=== PATIENT | female | born 1995 | race Caucasian/White ===

== ENCOUNTER 2019-08-14 23:01 | Day surgery (SDC) | payer OTHER ==
[2019-08-14 23:40] VITALS: BMI 25.2
[2019-08-14 23:48] LABS: Amnisure Test No Membranes Rupture (No Rupture)
[2019-08-14 23:49] LABS: Amnisure Internal Control QC ACCEPTABLE (ACCEPTABLE)
[2019-08-15] MEDS ORDERED: hydrALAZINE 20 MG/ML VIAL SLOW IVP PRN (00:20)
--- NOTE | 2019-08-15 07:31 | SS ---
DATE OF ADMISSION: 08/14/2019 DATE OF DISCHARGE: 08/15/2019 TIME OF SERVICE: 0020 REASON FOR CONSULTATION: Possible rupture of membranes at 36 weeks gestation. HISTORY OF PRESENT ILLNESS: Mrs. Toussaint is a 1, para 0, 24 [address] Weiss. Her CATHLEEN is 09/10. She thinks she may be leaking fluid. She reports some contractions too. She reports an active fetus. TRIAL EXAMINER HISTORY: Uncomplicated . Blood type O negative, antibody negative. Pap negative. Rubella immune. VDRL nonreactive. Hepatitis B, GC, chlamydia negative. Group B strep unknown. PAST MEDICAL HISTORY: Denies. PAST SURGICAL HISTORY: Denies. ALLERGIES: DENIES. MEDICATIONS: vitamins. SOCIAL HISTORY: Denies tobacco, alcohol, or IV drug use. FAMILY HISTORY: Reviewed. REVIEW OF SYSTEMS: Noncontributory. PHYSICAL EXAMINATION: GENERAL: White female, no acute distress. VITAL SIGNS: Temperature 98.1, respirations 18, pulse 85, blood pressure 128/82. HEENT: Within normal limits. LUNGS: Clear to auscultation bilaterally. HEART: Regular rhythm. ABDOMEN: Soft and nontender with occasional indentable contractions. Fundal height of 36. FHTs 140s. Vulva without lesions. Vagina without significant discharge. Cervix is 150 and -2 posterior cephalic presentation. EXTREMITIES: No clubbing, cyanosis, or edema. LABORATORY STUDIES: monitoring is carried out for greater than 20 minutes, revealed positive accelerations, no decelerations, category 1 heart rate tracing baseline 140s. Contractions q.5-6 minutes. AmniSure was performed, which was negative for rupture of membranes. IMPRESSION: Prodromal labor at 36 weeks gestation. No evidence of rupture of membranes. PLAN: Discharge home. ER precautions. Keep scheduled followup next Sunday with Dr. Weiss. Job ID: [id number]
[2019-08-15] MEDS ORDERED: FLU VACC QS2019-20(6MOS UP)/PF 60 MCG/0.5 ML SYRINGE IM ONE (09:00)
== END 2019-08-15 00:19 | disposition home or self-care (01) ==
LOC: L&D/OP 23:01
PROVIDERS: ATTEND Obstetrics & Gynecology
DX: O47.03 False labor before 37 completed weeks of gestation, third trimester (principal); O99.89 Other specified diseases and conditions complicating pregnancy, childbirth and the puerperium; N89.8 Other specified noninflammatory disorders of vagina; Z3A.36 36 weeks gestation of pregnancy; Z88.1 Allergy status to other antibiotic agents
CPT/HCPCS: 84112; 99283

== ENCOUNTER 2019-08-27 16:44 | Day surgery (SDC) | payer OTHER ==
[2019-08-27 17:11] VITALS: BP 118/70; TEMP 98.8
[2019-08-27 17:51] VITALS: BMI 28.3
[2019-08-27] MEDS ORDERED: FLU VACC QS2019-20(6MOS UP)/PF 60 MCG/0.5 ML SYRINGE IM ONE (20:00)
== END 2019-08-27 23:37 | disposition home or self-care (01) ==
LOC: L&D/OP 16:44
PROVIDERS: ATTEND Obstetrics & Gynecology
DX: O47.9 False labor, unspecified (principal); Z3A.00 Weeks of gestation of pregnancy not specified; Z88.1 Allergy status to other antibiotic agents
CPT/HCPCS: 99283

== ENCOUNTER 2019-08-30 19:09 | Inpatient (IN) | payer OTHER ==
[~2019-08-30 19:09] MED LIST: Bupivacaine/Epinephrine 0.25% 30 ML VIAL ONE
[2019-08-30] MEDS ORDERED: hydrALAZINE 20 MG/ML VIAL SLOW IVP PRN (19:47)
[2019-08-30 19:49] VITALS: BMI 25.8
--- NOTE | 2019-08-30 19:53 | PDOC.FPROB ---
FMR OB H&P: Medications - Current Home Medications: Medication Instructions Recorded Confirmed Type Pnv No.95/Ferrous Fum/Folic AC 1 tab PO DAILY 08/14/19 08/30/19 History [ [place]] Allergies/Adverse Reactions: Allergies Allergy/AdvReac Type Severity Reaction Status Date / Time azithromycin Allergy Severe Anaphylaxis Verified 08/27/19 17:09 FMR OB H&P: Vital Signs - Maternal Vital signs: Vital Signs - First Documented Temp Pulse Resp BP Pulse Ox 98.4 F 100 16 126/73 98 08/30/19 19:30 08/30/19 19:30 08/30/19 19:30 08/30/19 19:30 08/30/19 19:30 FMR OB H&P: A/P - Problem List (1) Current Visit: Yes Status: Acute Discussion: Date/Time: 08/30/191951 PCP: Isela HPI: This is a at 38.2 wks presenting for SROM. She states this occurred about 630 PM, she was getting out of the bathtub and felt a gush of fluid, she waited 30 minutes and felt another jimenes of fluid and continued to have leakage upon arrival to the ER. She states she is feeling contractions about 5 minutes apart. She affirms movement, denies bleeding. Denies HAYS, visual changes, SOB, or swelling. History: OB hx: G1, uncomplicated PMH: denies significant PMH PSH: neg Meds: PNV All: Azithromycin (anaphylaxis) Soc Hx: denies smoking, alcohol, drugs Fam Hx: denies downs, congenital defects GBS: unknown Blood type: O neg Ab screen: neg HIV: neg RPR: neg Hep B: neg Rubella: immune 1 hr GTT: 123 GC/CT: neg PAP: NILM REVIEW OF SYSTEMS: Gen: no fever, chills, or sweats Neuro: no numbness/tingling, no weakness, denies headache ENT: denies congestion Eyes: no visual changes Resp: denies cough, no production, no SOB, no wheeze Card: denies chest pain, no palpitations GI: denies nausea, vomiting, diarrhea : no dysuria, no hematuria Skin: no rash, no erythema Psych: denies hx anxiety/depression Vitals: T: 98.5 R: 18 BP: 123/84 P:67 at: 98% on RA PHYSICAL EXAMINATION: General: NAD, alert and oriented x3 HEENT: EOMI, normal sclera Neck: Supple. Full ROM. Heart/Cardiovascular System: RRR, Cap refill < 3 seconds, no rub, no murmur Lungs/Respiratory System: clear to auscultation bilaterally. No increased work of breathing. Room air. Abdomen/Gastro-Intestinal System: no abdominal tenderness, normal bowel sounds, Gravid Extremities: Warm extremities. No cyanosis or edema. Neuro: No gross deficits appreciated Psychiatry: Awake, Alert and cooperative with exam Skin: no lesions, no rashes Musculoskeletal: Full ROM A/P: This is a at 38.2 wks presenting for SROM. FHT: 150 baseline, mod variability, no decels, accels present [place]: irregular contractions # - /-1 - GBS neg - Amnisure negative - will start Pitocin augmentation - admitted to Dr. Weiss
[2019-08-30 20:16] LABS: Amnisure Internal Control QC ACCEPTABLE (ACCEPTABLE); Amnisure Test No Membranes Rupture (No Rupture)
[2019-08-30] MEDS ORDERED: Ondansetron PF 4 MG/2 ML Vial IVP PRN (20:37)
[2019-08-30] MEDS ORDERED: Promethazine HCl 25 MG/ML VIAL IM PRN (20:37)
[2019-08-30] MEDS ORDERED: Lidocaine 1% (PF) 30 ML VIAL SC PRN (20:37)
[2019-08-30] MEDS ORDERED: Acetaminophen 500 MG TAB PO PRN (20:37)
[2019-08-30] MEDS ORDERED: NS / Oxytocin 40 units/1000ml 1,000 ML IV PRN (20:37)
[2019-08-30] MEDS ORDERED: NS w/ Oxytocin 10 units 500 ML IV SCH (20:45)
[2019-08-30] MEDS: Lactated Ringer's 1,000 ML IV SCH (21:11)
[2019-08-30 21:55] LABS: Hemoglobin 11.9 g/dL (12.0-16.0); Mean Corpuscular HGB CONC 34.3 g/dL (32.0-36.0); Mean Corpuscular Hemoglobin 31.1 pg (27.0-31.0); Mean Corpuscular Volume 90.8 fL (78.0-98.0); Mean Platelet Volume 9.5 fL (7.4-10.4); Platelet Count 182 thou/uL (130-400); RBC Distribution Width 12.5 % (11.5-14.5); Red Blood Cell (RBC) Count 3.82 mill/uL (4.20-5.40); White Blood Cell (WBC) Count 14.5 thou/uL (4.8-10.8)
[2019-08-30 22:17] LABS: Syphilis Antibody Nonreactive (Nonreactive); Syphilis Antibody Index 0.03 S/CO (<1.00 Non-Reactive)
[2019-08-30 22:44] LABS: HBSAg Index 0.27 S/CO (0-0.99); Hep B Surf Ag Non-Reactive S/CO (NonReactive)
[2019-08-31] MEDS ORDERED: Fentanyl 4 mcg/Bup 0.1% Cadd 100 ML ONE (01:34)
[2019-08-31] MEDS: Lactated Ringer's 1,000 ML IV SCH ×2 (03:34→10:39)
[2019-08-31] MEDS ORDERED: Lidocaine 1% (PF) 30 ML VIAL ONE (06:58)
[2019-08-31] MEDS ORDERED: NS / Oxytocin 40 units/1000ml 1,000 ML ONE (06:58)
[2019-08-31] MEDS: Misoprostol 200 MCG TAB ONE ×2 (07:42→08:06)
[2019-08-31] MEDS ORDERED: HYDROcodone/Acetaminophen 5/325 mg Tablet PO PRN (09:15)
[2019-08-31] MEDS ORDERED: Preparation H Ointment 28 GM TUBE PR PRN (09:15)
[2019-08-31] MEDS ORDERED: Promethazine HCl 25 MG/ML VIAL IM PRN (09:15)
[2019-08-31] MEDS ORDERED: Adacel (T-DAP) 0.5 ML SYRINGE IM ONE (09:15)
[2019-08-31] MEDS ORDERED: Measles/Mumps/Rubella 10 MCG/0.5 ML VIAL SC ONE (09:15)
[2019-08-31] MEDS ORDERED: diphenhydrAMINE 25 MG CAP PO PRN (09:15)
[2019-08-31] MEDS ORDERED: hydrALAZINE 20 MG/ML VIAL SLOW IVP PRN (09:15)
[2019-08-31] MEDS ORDERED: Lanolin Ointment 7 GM TUBE TOP PRN (09:15)
[2019-08-31] MEDS ORDERED: Ondansetron PF 4 MG/2 ML Vial IVP PRN (09:15)
[2019-08-31] MEDS ORDERED: Bisacodyl 10 MG SUPP PR PRN (09:15)
[2019-08-31] MEDS ORDERED: NS / Oxytocin 40 units/1000ml 1,000 ML IV SCH (09:15)
[2019-08-31] MEDS ORDERED: Methylergonovine 0.2 MG/ML VIAL IM PRN (09:15)
[2019-08-31] MEDS ORDERED: Zolpidem Tartrate 5 MG TAB PO PRN (09:15)
[2019-08-31] MEDS ORDERED: Milk Of Magnesia 30 ML UDCUP PO PRN (09:15)
[2019-08-31] MEDS ORDERED: Varicella virus, LIVE 0.5 ML VIAL SC ONE (09:15)
[2019-08-31] MEDS ORDERED: Benzocaine-Menthol 82.5 ML CAN TOP PRN (09:15)
[2019-08-31] MEDS: Ibuprofen 800 MG TAB PO SCH ×2 (09:31→18:14)
[2019-08-31] MEDS: Ferrous Sulfate 325 MG TAB PO SCH (10:36)
[2019-08-31] MEDS: Docusate Calcium (SURFAK) 240 MG CAP PO SCH ×2 (11:12→21:41)
[2019-08-31] MEDS: Prenatal Vitamin 1 TAB PO SCH (11:12)
[2019-08-31] MEDS: HYDROcodone/Acetaminophen 5/325 mg Tablet PO PRN (15:03)
[2019-09-01] MEDS: Ibuprofen 800 MG TAB PO SCH ×3 (02:42→21:28)
[2019-09-01] MEDS ORDERED: Witch Hazel-Glycerin 1 EACH JAR TOP PRN (04:49)
[2019-09-01 05:58] LABS: Hemoglobin 11.1 g/dL (12.0-16.0); Mean Corpuscular HGB CONC 34.3 g/dL (32.0-36.0); Mean Corpuscular Hemoglobin 31.5 pg (27.0-31.0); Mean Corpuscular Volume 91.7 fL (78.0-98.0); Mean Platelet Volume 9.6 fL (7.4-10.4); Platelet Count 168 thou/uL (130-400); RBC Distribution Width 12.6 % (11.5-14.5); Red Blood Cell (RBC) Count 3.53 mill/uL (4.20-5.40); White Blood Cell (WBC) Count 13.3 thou/uL (4.8-10.8)
[2019-09-01] MEDS: Ferrous Sulfate 325 MG TAB PO SCH ×2 (07:43→16:34)
[2019-09-01] MEDS: Docusate Calcium (SURFAK) 240 MG CAP PO SCH ×2 (08:03→21:28)
[2019-09-01] MEDS: Prenatal Vitamin 1 TAB PO SCH (08:03)
[2019-09-01] MEDS: HYDROcodone/Acetaminophen 5/325 mg Tablet PO PRN ×3 (08:09→21:32)
--- NOTE | 2019-09-01 21:20 | PDOC.PP ---
Post Progress Note Post Day #: 1 PO intake tolerated: yes Flatus: yes Ambulation: yes Vital Signs (12 hours) Temp Pulse Resp BP Pulse Ox 09/01/19 20:09 98.6 F 78 12 107/63 98 09/01/19 11:32 99.1 F 65 20 113/67 98 Weight Weight 170 lb - Physical Examination General: NAD Cardiovascular: no m/r/g, RRR Respiratory: clear to auscultation bilaterally, non-labored breathing Abdominal: + bowel sounds, lochia, no distention, appropriately TTP Extremities: negative homans (B) Neurological: no gross focal deficits Psychiatric: A&Ox3, normal affect Result Diagrams: 09/01/19 05:45 Additional Labs: Post Labs Blood Type O NEGATIVE 08/30/19 22:33 Hep Bs Antigen Non-Reactive S/CO (NonReactive) 08/30/19 21:14
--- NOTE | 2019-09-02 00:18 | DN ---
DATE OF PROCEDURE: 08/31/2019 TIME OF SERVICE: 0718 hours [place] Day[employer] Savings Time. PREOPERATIVE DIAGNOSIS: Intrauterine at 38 weeks and 3 days with spontaneous onset of labor. POSTOPERATIVE DIAGNOSIS: Intrauterine at 38 weeks and 3 days with spontaneous onset of labor. PROCEDURES PERFORMED: Spontaneous vaginal delivery over a right periurethral laceration and a first-degree laceration of the perineum. FINDINGS: Viable female , weighing 3359 g or 7 pounds 6 ounces. Apgars 8 and 9. QUANTITATIVE BLOOD LOSS: 101 mL. COMPLICATIONS: None. PROCEDURE IN DETAIL: The patient presented to [facility] where she was admitted to the labor and delivery service. The patient underwent a normal and uneventful labor with normal cervical dilatation until she was found to be completely dilated. She was then allowed to push and was able to bring the baby down and delivered the baby in a vertex presentation without difficulties. Once the head delivered in occiput anterior position, the shoulders followed spontaneously along with the rest of the baby's body. Once out the baby's mouth and nose were bulb suctioned. The cord was clamped and cut and baby was handed to waiting attendants. Cord blood was collected. Gentle fundal massage was performed and the placenta delivered intact without problems. Hemostasis was assured. Quantitative blood loss was calculated. Inspection of the cervix, vaginal vault, and perineum did not reveal any lacerations needing suturing. Once again, hemostasis was within normal limits and the patient was allowed to recover in the labor and delivery room. Baby went to nursery. Job ID: [id number]
[2019-09-02] MEDS: Ibuprofen 800 MG TAB PO SCH ×2 (05:58→13:18)
[2019-09-02] MEDS: Ferrous Sulfate 325 MG TAB PO SCH (08:10)
[2019-09-02 08:35] VITALS: BP 108/67; TEMP 98.3
[2019-09-02] MEDS: Prenatal Vitamin 1 TAB PO SCH (08:39)
[2019-09-02] MEDS: Docusate Calcium (SURFAK) 240 MG CAP PO SCH (08:39)
[2019-09-02] MEDS: HYDROcodone/Acetaminophen 5/325 mg Tablet PO PRN (08:45)
== END 2019-09-02 13:30 | disposition home or self-care (01) | DRG 807 ==
LOC: L&D/OP 19:09 → L&D 20:38 → 3SW 08-31 10:41
PROVIDERS: ADMIT Obstetrics & Gynecology; ATTEND Obstetrics & Gynecology
PROC: 10E0XZZ Delivery of Products of Conception, External Approach (ICD-10-PCS; principal; 2019-08-31)
PROC: 0HQ9XZZ Repair Perineum Skin, External Approach (ICD-10-PCS; 2019-08-31)
DX: O70.0 First degree perineal laceration during delivery (principal); Z37.0 Single live birth; Z3A.38 38 weeks gestation of pregnancy
CPT/HCPCS: 36415; 51702; 84112; 85027; 85461; 86780; 86850; 86870; 86900; 86901; 87340; 90384; 90715; 96372; 99285; J2001; J2590